=== PATIENT | female | born 2000 | race Caucasian/White ===

== ENCOUNTER 2022-12-12 09:16 | Outpatient (OUT) | payer OTHER, SELFPAY ==
--- NOTE | 2022-12-12 09:19 | US_ITS ---
The [address] [address] Patient Name: TASHA TAYLOR MRN: [id number] date: 2000 Sex: F Assigned Patient Location: Current Patient Location: US Accession/Order Number: [id number] Exam Date: 12/12/2022 09:19 Report Date: 12/12/2022 15:15 At the request of: GEOVANNA WINN Procedure: US pelvis w/ transvaginal EXAMINATION: US pelvis w/ transvaginal HISTORY: ENDOMETRIOSIS ; painful menstruation, nausea and vomiting, syncope COMPARISON: No relevant comparison available. TECHNIQUE: Transabdominal and/or transvaginal sonographic examination was performed as indicated by examination type. FINDINGS: UTERUS: Normal size and appearance. Uterus size: 7.2 x 3.0 x 4.7 cm ENDOMETRIUM: Normal homogeneous appearance. Endometrial thickness: 5 mm RIGHT OVARY: Normal size and appearance. Duplex Doppler demonstrates normal waveform and flow; resistive index 0.5. Ovary size: 3.9 x 2.6 x 3.9 cm LEFT OVARY: Normal size and appearance. Duplex Doppler demonstrates normal waveform and flow; resistive index 0.5. Ovary size: 3.3 x 1.9 x 2.9 cm CUL-DE-SAC: Unremarkable. No significant free fluid. BLADDER: Unremarkable. OTHER: None. US/US pelvis w/ transvaginal IMPRESSION: 1. Normal pelvic ultrasound. No suspicious findings to account for patient's symptoms. Electronically authenticated by: KODY IBARRA Date: 12/12/2022 15:15
== END 2022-12-12 09:17 | disposition home or self-care (01) ==
LOC: US 09:16
PROVIDERS: Visit Provider Obstetrics & Gynecology
DX: N92.0 Excessive and frequent menstruation with regular cycle (principal); R10.2 Pelvic and perineal pain
CPT/HCPCS: 76830; 76856

== ENCOUNTER 2022-12-13 10:06 | Outpatient (OUT) | payer OTHER, SELFPAY ==
[2022-12-13 10:26] LABS: Basophils Percent Auto 0.6 % (0.2-2.0); Eosinophils Absolute Auto 0.1 10^3/uL (0.0-0.7); Hematocrit 43.4 % (36.0-48.0); Hemoglobin 14.3 g/dL (12.0-16.0); Immature Granulocytes Abs Auto 0.04 10^3/uL (0.00-0.03); Immature Granulocytes Pct Auto 0.6 % (0.0-0.5); Lymphocytes Absolute Auto 1.9 10^3/uL (1.2-3.8); Lymphocytes Percent Auto 27.1 % (20.5-60.0); Mean Corpuscular HGB Conc 32.9 g/dL (29.9-35.2); Mean Corpuscular Hemoglobin 29.5 pg (26.7-34.0); Mean Corpuscular Volume 89.5 fL (81.0-99.0); Mean Platelet Volume 10.2 fL (9.5-13.5); Monocytes Absolute Auto 0.5 10^3/uL (0.3-0.8); Monocytes Percent Auto 6.4 % (1.7-12.0); Neutrophils Absolute Auto 4.5 10^3/uL (1.4-6.5); Neutrophils Percent Auto 63.3 % (43.0-75.0); Platelet Count 311 10^3/uL (150-450); Red Blood Count 4.85 10^6/uL (4.20-5.40); Red Cell Distribution Width 12.3 % (11.0-15.0); White Blood Count 7.1 10^3/uL (4.0-11.0)
[2022-12-13 10:42] LABS: Partial Thromboplastin Time 29.6 sec (22.3-36.2); Prothrombin Time 10.6 sec (9.0-11.6)
[2022-12-13 11:01] LABS: Estimated Average Glucose 100 mg/dL; Glycohemoglobin A1C 5.1 % (4.5-6.2)
[2022-12-13 13:10] LABS: HCG Quantitative <1 mIU/mL; Thyroid Stimulating Hormone 0.689 uIU/mL (0.358-3.740)
[2022-12-13 13:26] LABS: Free T4 0.94 ng/dL (0.76-1.46)
[2022-12-15 21:17] LABS: DHEA, Serum 621 ng/dL (31-701)
== END 2022-12-13 10:07 | disposition home or self-care (01) ==
LOC: LAB 10:08
PROVIDERS: Visit Provider Obstetrics & Gynecology
DX: N92.0 Excessive and frequent menstruation with regular cycle (principal); R10.2 Pelvic and perineal pain
CPT/HCPCS: 36415; 82626; 82627; 83036; 84439; 84443; 84702; 85025; 85610; 85730